=== PATIENT | male | born 1980 | race Caucasian/White ===

== ENCOUNTER 2016-04-28 16:31 | Observation (INO) | payer OTHER ==
[~2016-04-28] VITALS: Ht 185.4 cm; Wt 73.1 kg
--- NOTE | ~2016-04-28 | H ---
[facility] [place] [address] HISTORY AND PHYSICAL Name: CAITLIN ALY Room #: 408-P [facility] M.R.#: [id number] Admission: 04/28/16 Attend Phys: Roni Cardoso MD, F Discharge: Date of : 80 Report #: [id number] THIS REPORT FOR: //name// CC: TYRELL physician/PCP Roni Cardoso DATE OF SERVICE: 04/28/2016 CHIEF COMPLAINT: Right lower quadrant abdominal pain. HISTORY OF PRESENT ILLNESS: This is a 35-year-old otherwise healthy male patient who was seen in the [place] [place] [facility] with sudden onset of right lower quadrant abdominal pain, starting around noon today. He also has associated nausea, vomiting, diarrhea and chills. He was found to have leukocytosis and CT evidence for acute appendicitis. I have been asked to see the patient for further evaluation and treatment. PAST MEDICAL HISTORY: Denies. PAST SURGICAL HISTORY: Tonsillectomy and adenoidectomy as a child. MEDICATIONS: No routine medications. ALLERGIES: SULFA DRUGS cause severe anaphylaxis. FAMILY HISTORY: The patient's maternal grandfather of a fatal myocardial infarction. Family history is otherwise noncontributory to this hospitalization. SOCIAL HISTORY: The patient denies any use of tobacco or alcohol. He smokes marijuana frequently. 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 He is accompanied by his father and girlfriend. REVIEW OF SYSTEMS: As per history of present illness. In addition: GENERAL: The patient denies unintentional weight loss, reports chills, no fever. HEENT: Denies changes in taste, vision, hearing, or smell. RESPIRATORY: Denies shortness of breath, COPD or asthma. CARDIOVASCULAR: Denies chest pain or palpitations. GASTROINTESTINAL: As per history of present illness. Denies bright red blood per rectum. The patient reports anorexia and complained of pain while being taken to the emergency room. GENITOURINARY: Denies dysuria, urgency, increased urinary frequency or hematuria. He did have difficulty urinating prior to his receiving IV fluid boluses. NEUROLOGIC: Denies headaches, numbness or tingling. [address] [address] HISTORY AND PHYSICAL Name: CAITLIN ALY Room #: 408-P [facility]#: [id number] Admission: 04/28/16 Attend Phys: Roni Cardoso MD, F Discharge: Date of : 80 Report #: [id number] MUSCULOSKELETAL: Denies myalgia, arthralgia or arthritis. PSYCHIATRIC: Denies depression, anxiety, or suicidal ideations. SKIN AND INTEGUMENTARY: Denies any skin lesions, rashes, or moles. ENDOCRINE: Denies polydipsia, polyuria, heat or cold intolerance. HEMATOLOGIC: Denies easy bleeding, bruising or anemia. All other review of systems is negative. PHYSICAL EXAMINATION: VITAL SIGNS: Temperature 99.0 initially, down to 98.2, blood pressure 106/56, pulse 59, respirations 16, height 6 feet and 2 inches, weight 79.4 mg. GENERAL: This is a well-developed and well-nourished 35-year-old male patient who appears uncomfortable. HEENT: Atraumatic and normocephalic with moist mucosal membranes. Oropharynx is clear. He has no scleral icterus. NECK: Supple, no appreciable lymphadenopathy. Trachea is midline. CHEST: Clear bilaterally. No crackles or wheezes. CARDIOVASCULAR: Regular rate and rhythm, S1, S2. ABDOMEN: Soft, but tender to palpation, greatest in the right lower quadrant over the McBurney's point. He has voluntary guarding and mild rebound. No palpable masses, no appreciable hernias. GENITOURINARY: Normal external male genitalia. EXTREMITIES: No clubbing, cyanosis or edema. NEUROLOGICAL: Cranial nerves 2-12 grossly intact. PSYCHIATRIC: Normal mood and affect. SKIN AND INTEGUMENTARY: No acute inflammatory changes, rashes or lesions are present. LABORATORY DATA: CBC shows a white blood cell count of 20.3, hemoglobin 14.2, hematocrit 41.8 and platelets 194 with 84% segmented neutrophils. His lactate was elevated at 2.4. Comprehensive metabolic profile shows sodium of 142, potassium 3.1, chloride 104, CO2 24, BUN 14, creatinine 1.0, and glucose 120. His liver function tests and lipase were entirely within normal limits. RADIOLOGIC STUDIES: CT of the abdomen and pelvis showed a fluid filled dilated, thickened appendix with surrounding inflammatory stranding. There was no evidence for periappendiceal abscess or inflammatory mass. A small amount of periappendiceal fluid was present. No free air was seen. This was felt to be consistent with acute appendicitis without evidence for abscess or rupture. ASSESSMENT AND PLAN: This is a 35-year-old male patient with right lower quadrant abdominal pain. His history, physical exam and CT findings are consistent with acute appendicitis. He may be developing an abscess as a small amount of fluid is present near the appendix. We discussed the pathophysiology and natural history of acute appendicitis. We then discussed the treatment alternatives and surgical options. The patient would benefit from laparoscopic appendectomy. The risks, benefits, and expectations of the operation were [facility] [address] [place] [address] HISTORY AND PHYSICAL Name: CAITLIN ALY Room #: 408-P [facility] Chloe Dee#: [id number] Admission: 04/28/16 Attend Phys: Roni Cardoso MD, F Discharge: Date of : 80 Report #: [id number] discussed in detail with the patient. He understands and wishes to proceed. He will be taken to the operating room at the next earliest availability. <ELECTRONICALLY SIGNED> By: Roni Cardoso MD, FACS 04/29/16 1020 [id number] Roni Cardoso MD, FACS /nt
--- NOTE | ~2016-04-28 | O ---
[facility] [place] [address] OPERATIVE REPORT Name: CAITLIN ALY Room #: 408-P [facility] Leila#: [id number] Admission: 04/28/16 Attend Phys: Roni Cardoso MD, F Discharge: Date of : 80 Report #: [id number] THIS REPORT FOR: //name// CC: TYRELL physician/PCP Roni Cardoso DATE OF SERVICE: 04/28/2016 OPERATIVE REPORT DATE OF PROCEDURE: 04/28/2016 PREOPERATIVE DIAGNOSIS: Acute appendicitis. POSTOPERATIVE DIAGNOSIS: Acute nonsuppurative, nonperforated appendicitis. PROCEDURE PERFORMED: Laparoscopic appendectomy. SURGEON: Roni Cardoso M.D. ANESTHESIA: General endotracheal anesthesia and local anesthetic. ESTIMATED BLOOD LOSS: 5 mL. SPECIMEN: Appendix. COMPLICATIONS: None appreciated. INDICATIONS: This is an otherwise healthy 35-year-old male patient, who developed acute onset right lower quadrant abdominal pain, nausea, vomiting, diarrhea and chills. He was seen in the [place] [facility] where he was found to have leukocytosis with a white blood cell count of over 20,[address] evidence for acute appendicitis. His exam was consistent with this. He presents now for laparoscopic appendectomy. OPERATIVE FINDINGS: Upon entrance into the abdominal cavity, there was global inflammation in the right lower quadrant. The appendix was dilated. Mostly, the appendix was uninvolved with the inflammatory process other than the base of the appendix. There was no evidence for abscess or a rupture. No other significant intra-abdominal pathology was identified. There was a small amount of bleeding from the staple line, which necessitated application of Arabella, as a hemostatic age. This provided excellent hemostasis. There were no other significant intra-abdominal pathologic findings. There was no evidence for iatrogenic injury. At the conclusion of the operation, the sponge, needle, and instrument counts were correct. [facility] [address] [place] [address] OPERATIVE REPORT Name: CAITLIN ALY Adalid [id number] Admission: 04/28/16 Attend Phys: Roni Cardoso MD, F Discharge: Date of : 80 Report #: [id number] DESCRIPTION OF PROCEDURE IN DETAIL: After the benefits and risks of the procedure were explained to the patient, which include but are not limited to risks of bleeding, infection, possible need for conversion to an open procedure, risks of DVT, pulmonary embolus, postoperative pain, postoperative expectations, informed consent was obtained. The patient was identified in the preoperative area. He was given IV antibiotics as documented in the chart in line with the SCIP protocol. The patient was then taken to the operating room and he was placed in the supine position. SCDs were placed on the patient's bilateral lower extremities and pneumatic compression was initiated. The patient was then induced for anesthesia. He was given IV sedation and he was intubated without incident. His abdomen was then prepped and draped in the standard sterile fashion. A timeout was performed to identify the correct patient and procedure. Local anesthetic was infiltrated into the skin and subcutaneous tissue supraumbilically where a curvilinear incision was made with a 15 blade scalpel. Dissection was carried down to the base of the umbilicus where a small fascial opening was made. A 12 mm Visiport was placed intraperitoneally with a 0-degree angled laparoscope. Pneumoperitoneum was then achieved with insufflation of carbon dioxide to 15 mmHg. A 30-degree angled laparoscope was then inserted. The patient was placed in the Trendelenburg position. A suprapubic 5 mm and left lower quadrant 5 mm port were each placed under direct visualization after local anesthetic was infiltrated into the skin and subcutaneous tissue and appropriately sized incisions were made. Operative findings are as noted above. The patient was rotated to his left, with the right side up. The appendix was identified. Omental adhesions to the appendix were seen. These were acute inflammatory adhesions. The omentum was divided. The appendix was then bluntly dissected off of the colon and bowel. The base of the appendix was identified. A window was made in the mesoappendix adjacent to the base of the appendix. A blue load endoscopic IRAIDA stapler was then used to staple and divide the appendix at its base. The mesoappendix was divided with the ultrasonic dissector with good hemostasis. The appendix was placed in an Endopouch and removed through the infraumbilical port site. An 0 PDS suture was placed with the Nilson-Stephany laparoscopic fascial closure device. The suture was tagged and the port was replaced. The abdominal cavity was then reentered. The abdominal cavity was irrigated and suctioned and return of all drainage ran clear other than a small amount of bleeding from the staple line. Decision was made to apply Arabella to the staple line. This provided good hemostasis. The port site fascial suture was then tied under direct visualization to ensure no incorporation of intra-abdominal contents. The abdominal cavity was desufflated and the ports were removed. Interrupted subcuticular 4-0 Monocryl sutures and Dermabond were used to close the skin incisions. The patient tolerated [address] [address] OPERATIVE REPORT Name: CAITLIN ALY Room #: 408-P [facility] Chloe Dee#: [id number] Admission: 04/28/16 Attend Phys: Roni Cardoso MD, F Discharge: Date of : 80 Report #: [id number] procedure well. He was awakened, extubated, and taken to recovery room in stable condition with no apparent intraoperative complications. <ELECTRONICALLY SIGNED> By: Roni Cardoso MD, FACS 04/29/16 1021 [id number] Roni Cardoso MD, FACS /nt
--- NOTE | ~2016-04-28 | S ---
[facility] [place] [address] SURGICAL PATH RPT PROCEDURE Name: CAITLIN ROCHE Room #: 408-P [facility] Chloe Dee#: [id number] Admission: 04/28/16 Date of : 80 Discharge: 04/29/16 Report #: [id number] Path Case #: [id number] PATHOLOGY REPORT COLLECTION DATE: 04/28/2016 RECEIVED DATE: 04/30/2016 SUBMITTING PHYS: Dr. Roni Cardoso OTHER PHYS: SPECIMEN(S) RECEIVED: A.Appendix * * * * * * * * * * * * FINAL DIAGNOSIS: Appendix, appendectomy: - Marked acute appendicitis, along with marked serositis. (IUV; 05/01/16) PATHOLOGIST: Kimberly Simmons M.D. REPORT ELECTRONICALLY SIGNED BY: Kimberly Simmons M.D. DATE/TIME: 05/01/2016 16:06 * * * * * * * * * * * * GROSS PATHOLOGY: Received in formalin labeled "Caitlin Roche and appendix," is an appendix measuring 6.3 cm in length and 1.3 cm in diameter with a moderate amount of attached mesoappendix. The serosal surface is dusky, pink-salazar, diffusely hemorrhagic, and displays multiple white-salazar exudate and adhesions. Sectioning reveals a 1.0 cm in diameter lumen filled with salazar-brown fecal to hemorrhagic and friable material. The mucosa is red-salazar and granular. The wall is thickened and measures 0.3 cm. Oncology Nurse sections are submitted as follows: A1 bisected distal tip and proximal resection A2-A3 agricultural sales representative sections from body of appendix (TTL; 04/30/2016) CLINICAL HISTORY: Acute appendicitis INITIAL CPT CODE(S): A; 06757 [facility] [address], [place] [address] [facility] [address] [address] SURGICAL PATH RPT PROCEDURE Name: CAITLIN ROCHE Room #: 408-P JEANINE Dee#: [id number] Admission: 04/28/16 Date of : 80 Discharge: 04/29/16 Report #: [id number] Path Case #: [id number] Technical services performed by [facility] at [address] [place] [address], [facility] [address] [address]. [facility] [address] [place] [address] PHONE: [phone] DIRECTOR: Negrito Vergara M.D. * * * END OF REPORT * * *
[2016-04-28 16:35] VITALS: BP 123/53
[2016-04-28 17:11] LABS: HEMATOCRIT 41.8 % (42.0-52.0); HEMOGLOBIN 14.2 gm/dL (14.0-18.0); MCH 28.8 pg (26.0-34.0); MCHC 33.9 % (28.0-37.0); PLATELET COUNT 194 thou/uL (150-400); RBC 4.92 mil/uL (4.50-6.00); RDW 13.3 % (10.5-14.5); WBC 20.3 thou/uL (4.0-11.0)
[2016-04-28 17:13] LABS: MANUAL DIFF YES
[2016-04-28 17:18] LABS: CALCIUM 9.2 mg/dL (8.5-10.1); POTASSIUM 3.1 mmol/L (3.5-5.1)
[2016-04-28 17:23] LABS: ALBUMIN 4.3 g/dL (3.4-5.0); TOTAL PROTEIN 7.5 g/dL (6.4-8.2)
[2016-04-28 17:41] LABS: ABSOLUTE NEUTROPHILS 17.7 thou/uL (1.4-8.2); TOTAL CELL COUNT 100
[2016-04-28 19:58] VITALS: BP 106/56
[2016-04-28 22:10] VITALS: BP 114/72
[2016-04-28 22:13] LABS: URINE BILIRUBIN NEGATIVE (Negative); URINE BLOOD TRACE (Negative); URINE COLOR YELLOW; URINE GLUCOSE-RANDOM* NEGATIVE (Negative); URINE KETONES 2+ (Negative); URINE NITRITE NEGATIVE (Negative); URINE PROTEIN (DIPSTICK) NEGATIVE (Negative); URINE UROBILINOGEN 0.2 E.U./dl (0.2-1.0)
[2016-04-28 22:45] VITALS: BP 116/68
[2016-04-28 23:17] VITALS: BP 115/46
[2016-04-29 00:23] VITALS: BP 98/54
[2016-04-29 01:49] VITALS: BP 95/51
[2016-04-29 04:00] VITALS: BP 92/56
[2016-04-29 06:02] LABS: ABSOLUTE NEUTROPHILS 13.2 thou/uL (1.4-8.2); BASOPHILS 0.1 % (0.0-2.0); HEMATOCRIT 38.3 % (42.0-52.0); HEMOGLOBIN 12.7 gm/dL (14.0-18.0); LYMPHOCYTES 11.6 % (24.0-44.0); MCH 28.5 pg (26.0-34.0); MCHC 33.1 % (28.0-37.0); MCV 86.1 fL (80.0-100.0); MONOCYTES 6.2 % (1.0-8.0); PLATELET COUNT 174 thou/uL (150-400); POLYS 82.1 % (36.0-66.0); RBC 4.45 mil/uL (4.50-6.00); RDW 13.5 % (10.5-14.5); WBC 16.1 thou/uL (4.0-11.0)
[2016-04-29 06:13] LABS: CALCIUM 7.9 mg/dL (8.5-10.1); CREATININE 0.9 mg/dL (0.6-1.3)
[2016-04-29 06:26] LABS: POTASSIUM 4.1 mmol/L (3.5-5.1)
[2016-04-29 06:33] LABS: MANUAL DIFF NO
[2016-04-29 08:05] VITALS: BP 90/56
[2016-04-29] MEDS ORDERED: NORCO 5-325 TA1 EACH PO (08:49)
[2016-04-29] MEDS ORDERED: SENNA-S TABLET1 EACH PO (08:49)
[2016-04-29 11:20] VITALS: BP 111/77
[2016-04-29 15:32] VITALS: BP 111/77
== END 2016-04-29 16:00 | disposition home or self-care (01) ==
LOC: ER 16:31 → EROBS 18:40 → 4N 19:59
PROVIDERS: Physician Assistant; Surgery
DX: K35.80 Unspecified acute appendicitis (principal); Z79.899 Other long term (current) drug therapy; D72.829 Elevated white blood cell count, unspecified; R19.7 Diarrhea, unspecified
CPT/HCPCS: 50101; 62110; 62900